=== PATIENT | male | born 1940 | race Caucasian/White ===

== ENCOUNTER → 2017-03-08 | Outpatient (CLI) | payer MEDICARE, OTHER ==
[2017-03-08 16:21] LABS: HEMOGLOBIN 12.9 gm/dl (14.0-17.5); RED BLOOD COUNT 4.36 M/UL (4.20-5.50); WHITE BLOOD COUNT 5.7 K/UL (4.5-11.0)
== END ==
LOC: LAB 15:55
PROVIDERS: Internal Medicine Nephrology
DX: D69.6 Thrombocytopenia, unspecified (principal); E87.2 Acidosis; N17.9 Acute kidney failure, unspecified
CPT/HCPCS: 36415; 80053; 83605; 85027

== ENCOUNTER 2022-01-20 11:54 | Emergency (ER) | payer MEDICARE, OTHER ==
[~2022-01-20 11:54] MED LIST: ALBUTEROL2.5 MG/3 M INH; ASPIRIN CHEWABL81 MG PO; CATAPRES0.3 MG PO; COREG 25MG TAB25 MG PO; LASIX40 MG PO; NORVASC10 MG PO; NOVOLIN 70100 UNIT/1 SC; PROTONIX40 MG PO; SPIRONOLACTONE25 MG PO; VENTOLIN HFA 66.7 GM INH; VITAMIN D1000 UNI1 PO
== END 2022-01-20 14:40 | disposition home or self-care (01) ==
LOC: ER1 11:54
DX: S30.0XXA Contusion of lower back and pelvis, initial encounter (principal); W19.XXXA Unspecified fall, initial encounter; Y92.009 Unspecified place in unspecified non-institutional (private) residence as the place of occurrence of the external cause
CPT/HCPCS: 72220; 99283